=== PATIENT | male | born 1990 | race Caucasian/White ===

== ENCOUNTER 2018-08-21 13:31 | Emergency (ER) | payer MEDICAID ==
[~2018-08-21] VITALS: Ht 180.3 cm; Wt 84.8 kg
[2018-08-21 13:44] VITALS: Ht 180.3 cm; Wt 84.8 kg
[2018-08-21 15:48] VITALS: BP 118/74
== END 2018-08-21 15:48 | disposition home or self-care (01) ==
LOC: ED 13:31
DX: S90.32XA Contusion of left foot, initial encounter (principal); W22.8XXA Striking against or struck by other objects, initial encounter; Y93.89 Activity, other specified; Y92.89 Other specified places as the place of occurrence of the external cause; Y99.8 Other external cause status